=== PATIENT | female | born 1980 | race Caucasian/White ===

== ENCOUNTER 2018-03-28 10:59 | Emergency (ER) | payer OTHER ==
[~2018-03-28] VITALS: Ht 157.5 cm; Wt 58.5 kg
[~2018-03-28 10:59] MED LIST: CIPROFLOXACIN500 M1 PO; FLEXERIL PO; IBUPROFEN 800800 MG PO; LEVORA-281 EACH PO; LISINOPRIL5 MG PO; NORCO 5-325 TA1 EACH PO; PREDNISONE 20 M20 M1 PO; PROAIR HFA8.5 GM INH; TORADOL 10 MG T10 MG PO; XANAX 0.5 MG0.5 MG PO; ZOFRAN4 MG PO; ZOLOFT50 MG PO; ZPAK PO
[2018-03-28 11:37] LABS: ABSOLUTE BASOPHILS 0.1 thou/uL (0.0-0.2); ABSOLUTE EOSINOPHILS 0.1 thou/uL (0.0-0.7); ABSOLUTE LYMPHOCYTES 2.8 thou/uL (0.8-5.3); ABSOLUTE MONOCYTES 0.8 thou/uL (0.0-1.2); ABSOLUTE NEUTROPHILS 7.6 thou/uL (1.6-8.1); BASOPHILS 0.6 %; EOSINOPHILS 0.6 %; HEMOGLOBIN 14.7 gm/dL (12.0-15.0); LYMPHOCYTES 24.6 %; MCH 32.5 pg (26.0-34.0); MCHC 33.5 g/dL (28.0-37.0); MCV 96.7 fL (80.0-100.0); MONOCYTES 7.4 %; MPV 9.7 fl. (7.2-11.1); NUCLEATED RBCS 0 /100WBC; PLATELET COUNT* 243 thou/uL (150-400); POLYS 66.8 %; RBC 4.54 mil/uL (4.20-5.00); RDW-CV 13.5 % (10.5-14.5); WBC 11.4 thou/uL (4.0-11.0)
[2018-03-28 11:46] LABS: ANION GAP 10 mmol/L (7-16); BUN 9 mg/dL (7-18); CALCIUM 8.9 mg/dL (8.5-10.1); CHLORIDE 102 mmol/L (98-107); CO2 26 mmol/L (21-32); CREATININE 0.8 mg/dL (0.6-1.3); GLUCOSE 101 mg/dL (70-99); POTASSIUM 3.9 mmol/L (3.5-5.1); SODIUM 138 mmol/L (136-145)
[2018-03-28 11:55] LABS: ALBUMIN 4.1 g/dL (3.4-5.0); ALKALINE PHOSPHATASE 77 U/L (46-116); LIPASE 76 U/L (73-393); SGOT 20 U/L (15-37); SGPT 20 U/L (30-65); TOTAL BILIRUBIN 0.5 mg/dL (<0.1-1.0); TROPONIN-I LEVEL <0.06 ng/mL (<0.06)
[2018-03-28 13:30] LABS: URINE BILIRUBIN NEGATIVE (Negative); URINE BLOOD 1+ (Negative); URINE CLARITY CLEAR; URINE COLOR YELLOW; URINE GLUCOSE-RANDOM NEGATIVE (Negative); URINE KETONES NEGATIVE (Negative); URINE LEUKOCYTES-REFLEX NEGATIVE (Negative); URINE NITRITE-REFLEX NEGATIVE (Negative); URINE PROTEIN NEGATIVE (Negative); URINE UROBILINOGEN 0.2 E.U./dl (0.2-1.0)
[2018-03-28 13:36] LABS: AMORPHOUS URATES Many /LPF (None Seen); BACTERIA-REFLEX 1-9 Few /HPF (None Seen); CASTS None Seen /LPF (None Seen); MUCUS None Seen strn/LPF (None Seen); SQUAMOUS >10 Many /LPF (0-3); URINE RBC 0-2 Rare /HPF (0-2); URINE WBC-REFLEX 0-5 Rare /HPF (0-5)
[2018-03-28 13:38] LABS: AMP/METHAMP Negative (Negative); BARBITURATES Negative (Negative); BENZODIAZEPINES Negative (Negative); COCAINE Negative (Negative); METHADONE Negative (Negative); OPIATES Negative (Negative); PCP Negative (Negative); THC POSITIVE (Negative)
[2018-03-28] MEDS ORDERED: PEPCID20 MG PO (14:32)
[2018-03-28] MEDS ORDERED: ADULT LOW DOSE81 MG PO (14:32)
[2018-03-28] MEDS ORDERED: OMEPRAZOLE 20 M20 M1 PO (14:32)
--- NOTE | 2018-03-28 14:35 | EKG ---
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 : 1980 Requested By: Senait Pires Order Number: [id number] MD: Mykel Wisdom Measurements Intervals [place] Rate: 74 P: 50 [place]: 127 QRS: 52 QRSD: 79 T: 23 QT: 372 QTc: 413 Interpretive Statements Sinus rhythm Baseline wander in lead(s) V3 Compared to ECG 01/31/2015 11:20:33 Sinus arrhythmia no longer present Electronically Signed On 03-28-2018 14:35:35 CDT by Mykel Wisdom [email or web address] <ELECTRONICALLY SIGNED> By: Mykel Wisdom MD, [facility] 03/28/18 1435 1105 1105 Mykel Wisdom MD, FACC /EPI
[2018-03-28 14:44] VITALS: BP 128/86
== END 2018-03-28 14:44 | disposition home or self-care (01) ==
LOC: M.ERS 10:59
PROVIDERS: Physician Assistant
DX: R07.89 Other chest pain (principal); I10 Essential (primary) hypertension; F41.9 Anxiety disorder, unspecified; Z90.710 Acquired absence of both cervix and uterus; Z77.22 Contact with and (suspected) exposure to environmental tobacco smoke (acute) (chronic)

== ENCOUNTER 2019-09-14 18:50 | Emergency (ER) | payer OTHER ==
[~2019-09-14] VITALS: Ht 157.5 cm; Wt 54.4 kg
[~2019-09-14 18:50] MED LIST changes: +ADULT LOW DOSE81 MG PO; +OMEPRAZOLE 20 M20 M1 PO; +PEPCID20 MG PO
[2019-09-14 20:30] LABS: HEMOGLOBIN 13.8 gm/dL (12.0-15.0); RDW-CV 13.3 % (10.5-14.5)
[2019-09-14 20:32] LABS: ABSOLUTE BASOPHILS 0.1 thou/uL (0.0-0.2); ABSOLUTE EOSINOPHILS 0.1 thou/uL (0.0-0.7); ABSOLUTE LYMPHOCYTES 3.2 thou/uL (0.8-5.3); ABSOLUTE MONOCYTES 0.9 thou/uL (0.0-1.2); ABSOLUTE NEUTROPHILS 5.7 thou/uL (1.6-8.1); BASOPHILS 0.8 %; EOSINOPHILS 1.1 %; HEMATOCRIT 40.1 % (37.0-47.0); LYMPHOCYTES 31.9 %; MCHC 34.5 g/dL (28.0-37.0); MCV 92.8 fL (80.0-100.0); MONOCYTES 9.1 %; MPV 9.2 fl. (7.2-11.1); NUCLEATED RBCS 0 /100WBC; PLATELET COUNT* 238 thou/uL (150-400); POLYS 57.1 %; RBC 4.32 mil/uL (4.20-5.00)
[2019-09-14 20:35] LABS: PROTIME 10.5 Seconds (9.20-11.50)
[2019-09-14 20:51] LABS: CALCIUM 9.3 mg/dL (8.5-10.1); CREATININE 0.8 mg/dL (0.6-1.3); POTASSIUM 3.9 mmol/L (3.5-5.1)
[2019-09-14 20:55] LABS: ALBUMIN 3.7 g/dL (3.4-5.0); TOTAL BILIRUBIN 0.3 mg/dL (<0.1-1.0); TOTAL PROTEIN 6.5 g/dL (6.4-8.2)
[2019-09-14] MEDS ORDERED: HYDROCHLOROTH12.5 M1 PO (21:47)
[2019-09-14] MEDS ORDERED: PRINIVIL5 MG PO (21:47)
[2019-09-14 22:30] VITALS: BP 119/70
--- NOTE | 2019-09-15 18:20 | EKG ---
[place] [address] ELECTROCARDIOGRAM REPORT Name: SUKHDEVDWAYNE JOHN Room: 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
== END 2019-09-14 22:30 | disposition home or self-care (01) ==
LOC: M.ERS 18:50
PROVIDERS: Personal Emergency Response Attendant
DX: I16.0 Hypertensive urgency (principal); I10 Essential (primary) hypertension; F41.9 Anxiety disorder, unspecified; F17.210 Nicotine dependence, cigarettes, uncomplicated; Z90.710 Acquired absence of both cervix and uterus

== ENCOUNTER 2020-04-22 12:09 | Emergency (ER) | payer OTHER ==
[~2020-04-22] VITALS: Ht 157.5 cm; Wt 56.2 kg
[~2020-04-22 12:09] MED LIST changes: +HYDROCHLOROTH12.5 M1 PO; +PRINIVIL5 MG PO
[2020-04-22 12:31] LABS: ABSOLUTE BASOPHILS 0.1 thou/uL (0.0-0.2); ABSOLUTE EOSINOPHILS 0.1 thou/uL (0.0-0.7); ABSOLUTE LYMPHOCYTES 2.2 thou/uL (0.8-5.3); ABSOLUTE MONOCYTES 0.8 thou/uL (0.0-1.2); ABSOLUTE NEUTROPHILS 7.7 thou/uL (1.6-8.1); BASOPHILS 0.5 %; EOSINOPHILS 0.8 %; HEMATOCRIT 37.7 % (37.0-47.0); HEMOGLOBIN 13.2 gm/dL (12.0-15.0); LYMPHOCYTES 20.7 %; MCH 32.9 pg (26.0-34.0); MCV 93.9 fL (80.0-100.0); MONOCYTES 7.2 %; MPV 8.9 fl. (7.2-11.1); NUCLEATED RBCS 0 /100WBC; PLATELET COUNT* 276 thou/uL (150-400); POLYS 70.8 %; RBC 4.02 mil/uL (4.20-5.00); RDW-CV 13.4 % (10.5-14.5); WBC 10.8 thou/uL (4.0-11.0)
[2020-04-22 13:29] VITALS: BP 102/74
[2020-04-22 13:42] LABS: ANION GAP 9 mmol/L (7-16); BUN 18 mg/dL (7-18); CALCIUM 8.4 mg/dL (8.5-10.1); CHLORIDE 103 mmol/L (98-107); CO2 26 mmol/L (21-32); CREATININE 0.9 mg/dL (0.6-1.3); GLUCOSE 108 mg/dL (70-99); POTASSIUM 3.9 mmol/L (3.5-5.1); SODIUM 138 mmol/L (136-145)
[2020-04-22 13:54] LABS: ALBUMIN 3.3 g/dL (3.4-5.0); ALKALINE PHOSPHATASE 51 U/L (46-116); CK-MB MASS < 0.5 ng/mL (<0.5-3.6); LIPASE 162 U/L (73-393); MAGNESIUM 1.7 mg/dL (1.8-2.4); NT-PRO BRAIN NAT PEPTIDE 156 pg/mL (<300); SGOT 16 U/L (15-37); SGPT 18 U/L (30-65); TOTAL BILIRUBIN 0.2 mg/dL (<0.1-1.0); TOTAL PROTEIN 6.7 g/dL (6.4-8.2)
--- NOTE | 2020-04-23 13:27 | EKG ---
[place] [address] ELECTROCARDIOGRAM REPORT Name: SUKHDEVDWAYNE JOHN 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
== END 2020-04-22 13:33 | disposition home or self-care (01) ==
LOC: M.ERS 12:09
PROVIDERS: Family Medicine
DX: R07.2 Precordial pain (principal); R42 Dizziness and giddiness; F17.210 Nicotine dependence, cigarettes, uncomplicated; I10 Essential (primary) hypertension; R06.02 Shortness of breath; F41.9 Anxiety disorder, unspecified; Z90.710 Acquired absence of both cervix and uterus